=== PATIENT | male | born 1990 | race Two or more races ===

== ENCOUNTER 2024-03-07 08:31 | Emergency (ER) | payer OTHER ==
[~2024-03-07] VITALS: Ht 190.5 cm; Wt 86.2 kg
[2024-03-07] MEDS ORDERED: LEXAPRO20 MG (08:52)
[2024-03-07] MEDS ORDERED: FAMOTIDINE/PF 20 MG/2 ML VIAL ONE (09:25)
[2024-03-07] MEDS ORDERED: ONDANSETRON HCL 2 MG/ML VIAL ONE (09:25)
[2024-03-07] MEDS ORDERED: ONDANSETRON HCL 2 MG/ML VIAL IV ONE (09:30)
[2024-03-07] MEDS ORDERED: FAMOtidine 10 MG/ML (4ML VIAL) IV ONE (09:30)
[2024-03-07] MEDS ORDERED: 0.9 % SODIUM CHLORIDE 1,000 ML IV ONE (09:30)
[2024-03-07 09:55] LABS: HEMATOCRIT 40.6 % (39.0-48.0); HEMOGLOBIN 14.1 g/dL (13-16.00); MEAN CORPUSCULAR HEMOGLOBIN 28.9 pg (27.00-32.0); MEAN CORPUSCULAR HGB CONC 34.8 g/dl (32.0-36.0); PLATELET COUNT 240 K/uL (150-450); RED BLOOD COUNT 4.89 M/uL (4.00-6.00)
[2024-03-07 10:29] LABS: ALBUMIN 4.5 gm/dL (3.4-5.0); BILIRUBIN TOTAL 0.52 mg/dL (0.3-1.2); CALCIUM 8.8 mg/dL (8.5-10.1); CREATININE SERUM 0.59 mg/dL (0.70-1.30); GFR 157.24; GLOBULINA 2.9 G/DL (2.4-3.5); POTASSIUM 4.03 mEq/L (3.5-5.1); TOTAL PROTEIN 7.4 gm/dL (6.4-8.2)
== END 2024-03-07 12:23 | disposition home or self-care (01) ==
LOC: ER 08:33
PROVIDERS: General Practice
DX: S06.9X9A Unspecified intracranial injury with loss of consciousness of unspecified duration, initial encounter (principal); W18.30XA Fall on same level, unspecified, initial encounter; Y93.9 Activity, unspecified; Y92.89 Other specified places as the place of occurrence of the external cause; Y99.9 Unspecified external cause status; R42 Dizziness and giddiness; Z88.8 Allergy status to other drugs, medicaments and biological substances